=== PATIENT | female | born 1990 | race Caucasian/White ===

== ENCOUNTER 2023-11-17 17:53 | Emergency (ER) | payer OTHER ==
[2023-11-17 18:40] VITALS: BP 126/82; PULSE 74; RESP 18; TEMP 98; BMI 22.8
[2023-11-17 18:46] LABS: HCG,QUALITATIVE URINE Negative
[2023-11-17 19:07] LABS: EPITHELIAL CELLS 0-5 /hpf
== END 2023-11-17 20:48 | disposition home or self-care (01) ==
LOC: FER 17:53
DX: R10.9 Unspecified abdominal pain (principal); M54.9 Dorsalgia, unspecified
CPT/HCPCS: 76775-TC; 81003; 81015; 84703; 99284-25

== ENCOUNTER 2023-11-26 10:17 | Emergency (ER) | payer OTHER ==
[2023-11-26 10:32] VITALS: BP 112/70; PULSE 55; RESP 18; TEMP 98.7; BMI 23.3
[2023-11-26 11:06] LABS: EPI CELLS >36 /uL (0-25.1); HCG,QUALITATIVE URINE Negative; HYALINE CASTS 2 /uL (0-3.1); PH,URINE 6.5 (5.0-8.0); URINE APPEARANCE CLEAR; URINE BACTERIA 1491 /uL (0-1359); URINE BILIRUBIN NEGATIVE (NEGATIVE); URINE COLOR YELLOW; URINE GLUCOSE (UA) NEGATIVE (NEGATIVE); URINE KETONE NEGATIVE (NEGATIVE); URINE LEUK ESTERASE NEGATIVE (NEGATIVE); URINE NITRITE NEGATIVE (NEGATIVE); URINE PROTEIN TRACE (NEGATIVE); URINE RBC 25 /uL (0-23.9); URINE UROBILINOGEN 0.2 mg/dL (0.2-1.0); URINE WBC 21 /uL (0-25.8)
[2023-11-26 11:28] LABS: BASO % 0.7 % (0-2.0); HEMATOCRIT 40.1 % (32.4-45.2); HEMOGLOBIN 13.7 GM/dL (10.7-15.3); INR 0.99 (0.83-1.09); MCH 29.8 pg (25.7-33.7); MEAN CELL VOLUME 87.7 fl (80-96); MEAN PLT VOLUME 8.9 fl (7.5-11.1); MONO % 5.6 % (3.8-10.2); NEUT % 41.7 % (42.8-82.8); PLATELET COUNT 272 10^3/uL (134-434); PROTHROMBIN TIME (PATIENT) 11.2 SEC (9.7-13.0); RBC 4.58 M/mm3 (3.60-5.2); RDW 13.3 % (11.6-15.6); WHITE BLOOD COUNT 6.2 K/mm3 (4.0-10.0)
[2023-11-26 11:31] LABS: ACTIVATED PTT 29.9 SECONDS (25.2-36.5)
[2023-11-26 11:46] LABS: POTASSIUM 4.8 mmol/L (3.5-5.1)
[2023-11-26 11:48] LABS: ALBUMIN 3.7 g/dl (3.4-5.0); BLOOD UREA NITROGEN 10.9 mg/dL (7-18); CALCIUM 9.2 mg/dL (8.5-10.1)
[2023-11-26 11:51] LABS: CREATININE 0.8 mg/dL (0.55-1.3)
[2023-11-26 11:53] LABS: BILIRUBIN,TOTAL 0.4 mg/dL (0.2-1); TOT PROT 6.7 g/dl (6.4-8.2)
== END 2023-11-26 13:14 | disposition home or self-care (01) ==
LOC: JER 10:17
DX: N23 Unspecified renal colic (principal); M54.9 Dorsalgia, unspecified; R10.9 Unspecified abdominal pain
CPT/HCPCS: 36415; 74176-TC; 80053; 81003; 84703; 85025; 85610; 85730; 87086; 99284-25

== ENCOUNTER 2023-12-05 15:02 | Emergency (ER) | payer OTHER ==
[2023-12-05 15:11] VITALS: RESP 18; BMI 23.3
[2023-12-05 15:25] VITALS: BP 121/79; PULSE 72; TEMP 98.4
[2023-12-05] MEDS ORDERED: IBUPROFEN 400 MG TABLET (FP) PO ONE (16:18)
[2023-12-05] MEDS: IBUPROFEN 400 MG TABLET (FP) PO ONE (16:19)
== END 2023-12-05 16:24 | disposition home or self-care (01) ==
LOC: FER 15:02
DX: R07.89 Other chest pain (principal); W22.8XXA Striking against or struck by other objects, initial encounter
CPT/HCPCS: 99283-25